=== PATIENT | male | born 1950 | race Caucasian/White ===

== ENCOUNTER 2023-10-12 19:51 | Inpatient (IN) | payer MEDICARE ==
[~2023-10-12] VITALS: Ht 182.9 cm; Wt 79.8 kg
--- NOTE | 2023-10-12 20:10 | NUR ---
Informed Supevisor for needed 1:1 sitter and Security to take an eye of the patient. Patient was changed to hospital gown.
[2023-10-12] MEDS ORDERED: KETOROLAC TROMETHAMINE 15 MG INJ IVP ONE (20:30)
[2023-10-12 20:45] LABS: BASOPHILS # (AUTO) 0.1 K/UL (0.0-0.2); BASOPHILS % (AUTO) 0.7 % (0.0-2.0); EOSINOPHILS # (AUTO) 0.1 K/uL (0.0-0.7); EOSINOPHILS % (AUTO) 1.2 % (0.0-7.0); HEMATOCRIT 45.5 % (36.7-47.1); HEMOGLOBIN 15.3 g/dL (12.5-16.3); LYMPHOCYTES # (AUTO) 3.4 K/uL (0.8-4.8); LYMPHOCYTES % (AUTO) 36.4 % (20.5-51.5); MEAN CORPUSCULAR HEMOGLOBIN 28.8 uug (23.8-33.4); MEAN CORPUSCULAR HGB CONC 34 g/dL (32.5-36.3); MEAN CORPUSCULAR VOLUME 85.7 fL (73.0-96.2); MONOCYTES # (AUTO) 1.1 K/uL (0.1-1.30); MONOCYTES % (AUTO) 11.4 % (0.0-11.0); NEUTROPHILS # (AUTO) 4.7 K/uL (1.8-8.9); NEUTROPHILS % (AUTO) 50.3 % (38.5-71.5); PLATELET COUNT (AUTO) 284 K/uL (152-348); RED BLOOD CELL COUNT(AUTO) 5.31 MIL/uL (4.06-5.63); RED CELL DISTRIBUTION WIDTH 13.7 % (12.1-16.2); WHITE BLOOD COUNT (AUTO) 9.3 K/uL (3.6-10.2)
[2023-10-12 20:50] LABS: DIFFERENTIAL COMMENT 1
[2023-10-12 21:00] LABS: CARBON DIOXIDE 28 mmol/L (21-32); CHLORIDE 105 mmol/L (98-107); CREATININE 1.2 mg/dL (0.6-1.3); GLUCOSE 125 mg/dL (74-106); POTASSIUM 3.3 mmol/L (3.5-5.1); SODIUM SERUM 140 mmol/L (136-145); UREA NITROGEN, BLOOD 30 mg/dL (7-18)
[2023-10-12 21:06] LABS: ALANINE AMINOTRANSFERASE 41 U/L (16-63); ALBUMIN 3.7 g/dL (3.4-5.0); ALKALINE PHOSPHATASE 46 U/L (50-136); ASPARTATE AMINOTRANSFERASE 19 U/L (15-37); BILIRUBIN,TOTAL 0.6 mg/dL (0.2-1.0); TOTAL PROTEIN, SERUM 6.8 g/dL (6.4-8.2)
[2023-10-12 21:47] LABS: ETHANOL < 3 MG/DL (0-10)
[2023-10-12 22:24] LABS: ACETAMINOPHEN < 10.0 ug/mL (10-30)
[2023-10-12 22:41] LABS: *BILIRUBIN,URIN NEGATIVE (NEGATIVE); *BLOOD, URINE NEGATIVE (NEGATIVE); *CLARITY,URINE CLOUDY (CLEAR); *COLOR,URINE YELLOW (YELLOW); *KETONES,URINE 1+ (NEGATIVE); *PROTEIN,URINE TRACE (NEGATIVE); *UROBILINOGEN,URINE 0.2 E.U./dl (NORMAL); LEUKOCYTE ESTERASE ,URINE NEGATIVE (NEGATIVE); NITRITE, URINE NEGATIVE (NEGATIVE)
[2023-10-12 22:46] LABS: UGLUCOSE 3+ (NEGATIVE)
[2023-10-12 22:50] LABS: RBC,URINE 0-3 /HPF (0-3); WBC,URINE NONE SEEN /HPF (0-3)
[2023-10-12 22:51] LABS: BACTERIA,URINE NONE SEEN /HPF (NONE SEEN); SQUAMOUS EPITHELIAL CELL,UR NONE SEEN /HPF (NONE SEEN); URINE AMORPHOUS URATE MANY /HPF
[2023-10-12 22:57] LABS: *AMPHETAMINE, URINE NEGATIVE (NEGATIVE); *BARBITURATE, URINE NEGATIVE (NEGATIVE); *BENZODIAZEPINE, URINE NEGATIVE (NEGATIVE); *CANNABINOID, URINE NEGATIVE (NEGATIVE); *COCCAINE, URINE NEGATIVE (NEGATIVE); *OPIATE, URINE NEGATIVE (NEGATIVE); *PHENCYCLIDINE SCREEN,URINE NEGATIVE (NEGATIVE); FENTANYL, URINE NEGATIVE (NEGATIVE)
--- NOTE | 2023-10-12 23:00 | NUR ---
PT A & O X 4 WITH NOC/O PAIN AND NAD OBSERVED. PT GIVEN A SACK LUNCH, FELICITY WELL.
[2023-10-12] MEDS ORDERED: OMEP20CA15 PO (23:22)
[2023-10-12] MEDS ORDERED: AMLO-212 (23:22)
[2023-10-12] MEDS ORDERED: METF-886 PO (23:22)
[2023-10-12] MEDS ORDERED: MIRT-121 (23:22)
[2023-10-12] MEDS ORDERED: ROSU20TA2 PO (23:22)
[2023-10-12] MEDS ORDERED: VENL75CA62 (23:22)
[2023-10-12] MEDS ORDERED: HYDR12.5 PO (23:22)
[2023-10-12] MEDS ORDERED: DIVA250T (23:22)
[2023-10-12] MEDS ORDERED: BENA20TA9 PO (23:22)
[2023-10-12] MEDS ORDERED: EMPA25TA (23:22)
[2023-10-12] MEDS ORDERED: EZET10TA32 PO (23:22)
[2023-10-12] MEDS ORDERED: LORAZEPAM 1 MG TABLET ONE (23:25)
[2023-10-12] MEDS ORDERED: POTASSIUM CHLORIDE 20 MEQ TAB.PRT.SR ONE (23:26)
[2023-10-12] MEDS: LORAZEPAM 0.5 MG TABLET PO ONE (23:27)
[2023-10-12] MEDS: POTASSIUM CHLORIDE 20 MEQ TAB.PRT.SR PO ONE (23:27)
[2023-10-13] MEDS ORDERED: TEMAZEPAM 7.5 MG CAPSULE PO PRN (07:00)
[2023-10-13] MEDS ORDERED: MAGNESIUM HYDROXIDE 30 ML LIQUID UDC PO PRN (07:00)
[2023-10-13] MEDS ORDERED: MAG HYDROX/AL HYDROX/SIMETH 30 ML LIQUID UDC PO PRN (07:00)
[2023-10-13] MEDS ORDERED: LORAZEPAM 0.5 MG TABLET PO PRN (07:00)
--- NOTE | 2023-10-13 07:30 | NUR ---
Gps/Nursing- Received patient pacing around the hallway , alert oriented x3, claimed feeling tired , and no energy , redirected to his room to rest , patient fell asleep right away , in no sign of any distress, no pain. Will attempt to talk talk to patient when fully rested and awake .
[2023-10-13] MEDS: BLOOD SUGAR DIAGNOSTIC 1 EACH STRIP VI ONE (07:58)
[2023-10-13 08:04] VITALS: BP 153/76; TEMP 98.2; O2SAT 98
[2023-10-13] MEDS ORDERED: PIOG30TA72 PO (09:43)
[2023-10-13] MEDS ORDERED: VENLAFAXINE XR 75 MG TAB.ER.24H PO SCH (10:45)
--- NOTE | 2023-10-13 13:00 | NUR ---
Gps/Nursing - Patient admits to feelings of being depressed , but has no plan to hurt self. Stayed in bed most of the morning napping . . Compliant with routine am. meds . Interacting fairly well with his peers. Patient was able to talked to his Francia. Stayed in the activity room during the afternoon. Per patient he had a prior Hospitalization in a locked facility in [facility] for few days , claimed with the same problem. Encouraged continued verbalizations of his feelings and needs, safety reviewed
[2023-10-13] MEDS: DIVALPROEX 250 MG TABLET.DR PO SCH (13:41)
[2023-10-13 15:38] VITALS: BP 158/95; TEMP 98; O2SAT 100
--- NOTE | 2023-10-13 16:13 | NUR ---
JORGE INITIAL DISCHARGE NOTE: [place] [address] [place] [address] . Pt would like to return home upon discharge. JORGE will work with pt, his , Vivian [phone], and to ensure a safe and proper discharge plan.
[2023-10-13] MEDS ORDERED: Medication Not On Formulary EA (Omeprazole 20 MG) PO PRN (17:30)
[2023-10-13] MEDS: ATORVASTATIN 40 MG TABLET PO SCH (20:16)
[2023-10-13 20:22] VITALS: BP 166/87; TEMP 97.9; O2SAT 98
--- NOTE | 2023-10-13 20:58 | NUR ---
GPS: Resting comfortably in bed at this time. Less anxious tonight so far. Re-assured prn. Still feels depressed but denies wanting to harm self. Meds.as ordered. Safe environment provided. Will continue to re-direct prn.
[2023-10-13] MEDS ORDERED: Medication Not On Formulary EA (Rosuvastatin Calcium (Crestor) 20 MG) PO SCH (21:00)
[2023-10-14 07:59] VITALS: BP 143/66; TEMP 98; O2SAT 99
[2023-10-14] MEDS: BENAZEPRIL HCL 20 MG TABLET PO SCH (08:15)
[2023-10-14] MEDS: EZETIMIBE 10 MG TABLET PO SCH (08:15)
[2023-10-14] MEDS: HYDROCHLOROTHIAZIDE 25 MG TABLET PO SCH (08:16)
[2023-10-14] MEDS: METFORMIN XR 500 MG TAB.SR.24H PO SCH (08:17)
[2023-10-14] MEDS: ACETAMINOPHEN 325 MG TABLET PO PRN (08:56)
[2023-10-14] MEDS: LORAZEPAM 0.5 MG TABLET PO PRN (08:57)
[2023-10-14] MEDS ORDERED: HYDROCHLOROTHIAZIDE 12.5 MG CAPSULE PO SCH (09:00)
[2023-10-14 09:11] LABS: THYROID STIMULATING HORMONE 1.242 mIU/mL (0.358-3.740)
[2023-10-14] MEDS ORDERED: ACETAMINOPHEN 500 MG TABLET PO PRN (09:15)
[2023-10-14] MEDS: PIOGLITAZONE HCL 15 MG TABLET PO SCH (10:10)
--- NOTE | 2023-10-14 13:30 | NUR ---
Gps/Nursing - Observed patient this am, extremely anxious , wants his phone , needed to call someone but does not know the number kept coming inside the Nurses station , needing redirections . Vivian in to visit patient this afternoon , black phone and carpenter assistant, given to as requested by patient,(belonging list singed) Stayed in the activity room during visiting hour.
[2023-10-14 16:11] VITALS: BP 140/75; TEMP 98; O2SAT 99
[2023-10-14 20:00] VITALS: BP 158/87; TEMP 98.1; O2SAT 99
[2023-10-14] MEDS: TEMAZEPAM 7.5 MG CAPSULE PO PRN (21:57)
[2023-10-15 08:14] VITALS: BP 156/80; TEMP 97.5; O2SAT 98
[2023-10-15 16:16] VITALS: BP 158/90; TEMP 97.9; O2SAT 98
--- NOTE | 2023-10-15 16:39 | NUR ---
Gps/Nursing- Vivian in to visit and patient stayed in the patio for few minutes , COREMAKER FLOOR supervising . Patient less anxious, interacting with his roommate.
[2023-10-15 20:00] VITALS: BP 151/90; TEMP 97.8; O2SAT 98
--- NOTE | 2023-10-16 07:04 | NUR ---
Slept well throughout the night. No distress noted. Kept comfortable. Will monitor patient. No behavioral issues noted.
[2023-10-16 08:04] VITALS: BP 150/90; TEMP 97.6; O2SAT 98
--- NOTE | 2023-10-16 11:16 | NUR ---
Gps/Nursing- Complained of being anxious, fidgety , restless, "cant stay still" ativan 0.5 mg 1 tab given with min. results, stayed in the activity room interacting with his peers, also was in the patio with the group , GILL Kline was supervising .
[2023-10-16] MEDS: AMLODIPINE 10 MG TABLET PO SCH (11:45)
[2023-10-16 17:05] VITALS: BP 166/84; TEMP 97.9; O2SAT 98
[2023-10-16 21:03] VITALS: BP 146/87; TEMP 98; O2SAT 96
--- NOTE | 2023-10-17 06:44 | NUR ---
GPS: Pt.slept 6.15 last night. Remains anxious at times. Re-assured prn. Denies wanting to harm self. Interacts with some of his peers. Needs attended. Will continue to monitor.
[2023-10-17 08:07] VITALS: BP 134/82; TEMP 98.2; O2SAT 98
--- NOTE | 2023-10-17 11:05 | NUR ---
JORGE DISCHARGE UPDATE: JORGE spoke with pts , Vivian [phone] who stated pt is welcome back home with her as long as pt is compliant with meds and compliant with treatment.
--- NOTE | 2023-10-17 14:33 | NUR ---
GPS: Nursing Notes: Mood Disturbance: Depression: Patient is awake and responding to his name, poor impulse control, constantly coming to the nursing station and asking the same questioned, forgetful, depressed mood and anxious affect, stated "The doctor made me feel unimportant... Does not want to talk to me.." Redirected and reoriented during shift, gets easily anxious when redirected, unable to formulate a viable plan for self care, needs prompting to participate in therapeutic groups, continue to monitor for safety, continue with treatment plan.
--- NOTE | 2023-10-17 16:02 | NUR ---
Social Work PC Hearing Notification Note: straightedge worker notified patient's , Vivian [phone] of patient's probable cause hearing at 10AM on 10/18/23. Vivian stated she will either attend in person or via telephone. Pt is agreeable for the to attend.
[2023-10-17 16:34] VITALS: BP 147/73; TEMP 98.1; O2SAT 99
[2023-10-17 20:00] VITALS: BP 109/67; TEMP 98; O2SAT 97
[2023-10-17] MEDS: DIVALPROEX 500 MG TABLET.DR PO SCH (20:44)
--- NOTE | 2023-10-18 04:44 | NUR ---
Pt has been overall compliant with med-pass and POC. He can be found interacting with other patient's. He's AOx3/4, and easily redirectable. The one medication this pt requests q shift after his routine meds, is a sleeping med, to which Restoril is given, and is effective. Pt sleeps well on this drug, and is easily awakened. Safe environment in place.
[2023-10-18 08:10] VITALS: BP 137/80; TEMP 98; O2SAT 96
[2023-10-18] MEDS: DIVALPROEX 250 MG TABLET.DR PO SCH (08:18)
--- NOTE | 2023-10-18 09:18 | NUR ---
GPS: Nursing Notes: Reassessment of Ativan: Patient became less anxious and participated in therapeutic groups. Ativan PO PRN was effective, R=20, continue to monitor for safety, continue with treatment plan.
--- NOTE | 2023-10-18 09:30 | NUR ---
Social Work PC Hearing Notification Note: SW reminded patient's , Vivian [phone] of patient's probable cause hearing at 10AM today. Vivian stated she will either attend in person or via telephone. Pt is aware that she can only stay during the duration of the hearing as it will not be visitation hours. Pt is agreeable for the to attend.
--- NOTE | 2023-10-18 10:28 | NUR ---
SW PC HEARING UPDATE: Pts advocate contacted this SW and stated that pts is attending in person and that they will be doing the hearing at 11:15 at her time of arrival.
--- NOTE | 2023-10-18 11:25 | NUR ---
JORGE DISCHARGE UPDATE: JORGE spoke with pts , Vivian [phone] in person who stated pt is welcome back home upon discharge with her as long as pt is compliant with meds and compliant with treatment.
--- NOTE | 2023-10-18 11:45 | NUR ---
PROBABLE CAUSE HEARIND hold upheld for GD , Patient and his Vivian attend the hearing .
--- NOTE | 2023-10-18 13:01 | NUR ---
GPS: Nursing Notes: Mood Disturbance: Depression: Patient is awake and responding to his name, forgetful, depressed mood and anxious affect, episodes of constantly coming to the nursing station and asking the same question, redirected and reoriented during shift, stated "The doctor made feel unimportant because she does not listen to me.." Reassured him that the doctor answered his questions severe times and she is coming every day to see him, needs prompting to participate in therapeutic groups, unable to formulate a viable plan for self care, continue to monitor for safety, continue with treatment plan.
[2023-10-18] MEDS: SERTRALINE HCL 50 MG TABLET PO SCH (13:21)
[2023-10-18 15:33] VITALS: BP 130/68; TEMP 97.8; O2SAT 99
[2023-10-18 20:00] VITALS: BP 124/71; TEMP 97.7; O2SAT 97
[2023-10-19 07:30] VITALS: BP 143/89; TEMP 98; O2SAT 98
--- NOTE | 2023-10-19 10:11 | NUR ---
SW FAMILY CONTACT: SW left a voicemail for pts , Vivian [phone] for a call back to provide pts outpatient therapist/psychiatrist information for this SW to follow-up for discharge follow-up appointments.
--- NOTE | 2023-10-19 10:20 | NUR ---
DISCHARGE UPDATE: [place] at [address] [place] [address] . Pt would like to return home upon discharge. pts , Vivian [phone] will provide discharge to return home upon discharge. Pt will follow-up with his Psychiatrist at [facility] [phone] On November 03 2023 at 1:15PM virtually.
--- NOTE | 2023-10-19 14:33 | NUR ---
SW DISCHARGE UPDATE: [place] [address] [place] [address] . Pt would like to return home upon discharge. Pts , Vivian [phone] confirmed pt is welcome back home and she will provide transportation home upon discharge for the pt. Pt will follow-up with his Psychiatrist, Dr. Brina Morrissey at [facility] [phone] On November 03 2023 at 1:15PM virtually. No set discharge date yet. Pt is agreeable with this plan.
[2023-10-19 15:31] VITALS: BP 123/68; TEMP 97.6; O2SAT 98
--- NOTE | 2023-10-19 18:11 | NUR ---
GPS: A0x3, denied current SI and contracted for safety during shift. Denies current HI, A/VH. Pt presents with low mood, anxiety, perseverating about medication changes and discharge throughout shift. Difficult to redirect with multiple attempts made throughout shift. Pt provided reassurance and validation of feeling but continued to display significant anxiety. PRN medication provided which appears to have been somewhat affective. Pt compliant with care and medications during shift. Will continue to monitor for safety.
[2023-10-19 20:00] VITALS: BP 126/71; TEMP 97.9; O2SAT 96
--- NOTE | 2023-10-19 20:40 | NUR ---
GPS: Pt.resting comfortably in bed at this time. Calm and cooperative and denies SI. No increased anxiety noted so far. Re-assured prn. Discussed with pt. his medication regimen. Pt.will ask psychiatrist tomorrow why his Zoloft was discontinued. Safe environment provided. Will continue to monitor.
[2023-10-20 08:09] VITALS: BP 118/73; TEMP 98; O2SAT 96
[2023-10-20 08:55] LABS: BASOPHILS % (AUTO) 0.5 % (0.0-2.0); EOSINOPHILS # (AUTO) 0.2 K/uL (0.0-0.7); EOSINOPHILS % (AUTO) 3.2 % (0.0-7.0); HEMATOCRIT 47.1 % (36.7-47.1); HEMOGLOBIN 15.9 g/dL (12.5-16.3); LYMPHOCYTES # (AUTO) 2.3 K/uL (0.8-4.8); LYMPHOCYTES % (AUTO) 30.8 % (20.5-51.5); MEAN CORPUSCULAR HEMOGLOBIN 29.1 uug (23.8-33.4); MEAN CORPUSCULAR HGB CONC 34 g/dL (32.5-36.3); MEAN CORPUSCULAR VOLUME 86.2 fL (73.0-96.2); MONOCYTES # (AUTO) 0.8 K/uL (0.1-1.30); MONOCYTES % (AUTO) 10.4 % (0.0-11.0); NEUTROPHILS # (AUTO) 4.1 K/uL (1.8-8.9); NEUTROPHILS % (AUTO) 55.1 % (38.5-71.5); PLATELET COUNT (AUTO) 235 K/uL (152-348); RED BLOOD CELL COUNT(AUTO) 5.47 MIL/uL (4.06-5.63); RED CELL DISTRIBUTION WIDTH 13.8 % (12.1-16.2); WHITE BLOOD COUNT (AUTO) 7.4 K/uL (3.6-10.2)
[2023-10-20 09:06] LABS: ALANINE AMINOTRANSFERASE 42 U/L (16-63); ALBUMIN 3.3 g/dL (3.4-5.0); ALKALINE PHOSPHATASE 45 U/L (50-136); ASPARTATE AMINOTRANSFERASE 16 U/L (15-37); BILIRUBIN,TOTAL 0.8 mg/dL (0.2-1.0); CALCIUM 9.8 mg/dL (8.5-10.1); CARBON DIOXIDE 32 mmol/L (21-32); CHLORIDE 103 mmol/L (98-107); GLUCOSE 114 mg/dL (74-106); POTASSIUM 3.8 mmol/L (3.5-5.1); SODIUM SERUM 140 mmol/L (136-145); TOTAL PROTEIN, SERUM 6.6 g/dL (6.4-8.2); UREA NITROGEN, BLOOD 31 mg/dL (7-18); VALPROIC ACID 66 ug/mL (50-100)
[2023-10-20 09:41] LABS: DIFFERENTIAL COMMENT 1
--- NOTE | 2023-10-20 11:38 | NUR ---
Gps/Nursing- Observed pacing around, c/o feelings anxious, ativan o.5 mg 1 tab po ,wants to stay in bed to relax, will wait for his to visit this pm. Encouraged to stay in the activity room , but preferred to be iin be , might have nap /pt.
--- NOTE | 2023-10-20 13:57 | NUR ---
Gps/Nursing- Valuables from the safe , returned/given back to (Vivian) as requested by patient and
--- NOTE | 2023-10-20 13:59 | NUR ---
Gps/Nursing- Vivian () and patient was able to talked to Dr Molina regarding his medications.
[2023-10-20 15:11] VITALS: BP 138/61; TEMP 98; O2SAT 98
[2023-10-20 20:07] VITALS: BP 147/83; TEMP 98.1; O2SAT 98
[2023-10-21 08:03] VITALS: BP 131/77; TEMP 98.2; O2SAT 99
[2023-10-21 15:00] VITALS: BP 122/66; TEMP 98; O2SAT 98
--- NOTE | 2023-10-21 15:08 | NUR ---
Gps/Nursing- Vivian came in to visit during lunch, patient interacting fairly well, claimed had a nice nap this am. less anxious
[2023-10-21 20:27] VITALS: BP 124/76; TEMP 98.1; O2SAT 98
--- NOTE | 2023-10-22 01:14 | NUR ---
Received patient in the room ,awake and alert. Patient would not admit or deny having feelings of SI ,but did make a verbal contract for safety with this song writer, for the shift. A PRN was requested for sleep . The medication was provided and effective. Safety Stratiges are in place and on going. Continuing to monitor for increase in depression and anxiety. No acute distress noted at this time.
[2023-10-22 08:24] VITALS: BP 118/69; TEMP 98.1; O2SAT 98
[2023-10-22 21:39] VITALS: BP 106/58; TEMP 98; O2SAT 98
--- NOTE | 2023-10-23 03:40 | NUR ---
Patient denied active SI tonight and was willing to engage in a meaningful conversation. This senior technical writer gave the patient a sleeping pill per request and it was effective. Also the patient was given information in writing for SI triggers and coping skills that may be useful when discharged. A verbal contract for safety was made for this shift between the patient and this senior technical writer. Continuing to monitor .
[2023-10-23 08:15] LABS: BASOPHILS # (AUTO) 0.1 K/UL (0.0-0.2); BASOPHILS % (AUTO) 1.8 % (0.0-2.0); EOSINOPHILS # (AUTO) 0.2 K/uL (0.0-0.7); EOSINOPHILS % (AUTO) 2.7 % (0.0-7.0); HEMATOCRIT 45.7 % (36.7-47.1); HEMOGLOBIN 15.2 g/dL (12.5-16.3); LYMPHOCYTES # (AUTO) 2.6 K/uL (0.8-4.8); LYMPHOCYTES % (AUTO) 40.3 % (20.5-51.5); MEAN CORPUSCULAR HEMOGLOBIN 29.2 uug (23.8-33.4); MEAN CORPUSCULAR HGB CONC 33 g/dL (32.5-36.3); MEAN CORPUSCULAR VOLUME 87.7 fL (73.0-96.2); MONOCYTES # (AUTO) 0.8 K/uL (0.1-1.30); MONOCYTES % (AUTO) 12.5 % (0.0-11.0); NEUTROPHILS # (AUTO) 2.7 K/uL (1.8-8.9); NEUTROPHILS % (AUTO) 42.7 % (38.5-71.5); PLATELET COUNT (AUTO) 190 K/uL (152-348); RED BLOOD CELL COUNT(AUTO) 5.21 MIL/uL (4.06-5.63); RED CELL DISTRIBUTION WIDTH 13.7 % (12.1-16.2); WHITE BLOOD COUNT (AUTO) 6.4 K/uL (3.6-10.2)
[2023-10-23 08:20] LABS: DIFFERENTIAL COMMENT 1
[2023-10-23 08:25] LABS: ALANINE AMINOTRANSFERASE 47 U/L (16-63); ALBUMIN 3.1 g/dL (3.4-5.0); ALKALINE PHOSPHATASE 45 U/L (50-136); ASPARTATE AMINOTRANSFERASE 15 U/L (15-37); BILIRUBIN,TOTAL 0.6 mg/dL (0.2-1.0); CALCIUM 9.8 mg/dL (8.5-10.1); CARBON DIOXIDE 34 mmol/L (21-32); CHLORIDE 105 mmol/L (98-107); GLUCOSE 120 mg/dL (74-106); POTASSIUM 3.9 mmol/L (3.5-5.1); SODIUM SERUM 142 mmol/L (136-145); TOTAL PROTEIN, SERUM 6.2 g/dL (6.4-8.2); UREA NITROGEN, BLOOD 29 mg/dL (7-18); VALPROIC ACID 82 ug/mL (50-100)
[2023-10-23 08:47] VITALS: BP 123/69; TEMP 98.1; O2SAT 98
--- NOTE | 2023-10-23 13:25 | NUR ---
Received Patient is awake and responding to his name, forgetful, depressed mood and anxious affect, episodes of constantly coming to the nursing station and asking for telephone , redirected and reoriented during shift.patient with depression mood pacing in hallway ,all needs attended ,will continue close monitoring.
[2023-10-23 16:41] VITALS: BP 118/69; TEMP 98; O2SAT 98
[2023-10-23 20:14] VITALS: BP 120/64; TEMP 98.1; O2SAT 98
[2023-10-24 08:20] VITALS: BP 129/73; TEMP 98.1; O2SAT 98
[2023-10-24 16:35] VITALS: BP 103/65; TEMP 98; O2SAT 98
[2023-10-24 20:27] VITALS: BP 112/51; TEMP 98.1; O2SAT 98
[2023-10-24] MEDS: DIVALPROEX 500 MG TABLET.DR PO SCH (20:52)
--- NOTE | 2023-10-25 06:46 | NUR ---
Overall complaint with care and med-pass. Overall goal-oriented and pleasant. Safe environment provided.
[2023-10-25 08:37] VITALS: BP 118/71; TEMP 98; O2SAT 100
[2023-10-25 15:07] VITALS: BP 120/58; TEMP 98; O2SAT 98
--- NOTE | 2023-10-25 15:18 | NUR ---
spoke with patient's Vivian [phone] for discharge in AM, Vivian will be here at 1100 AM to case picker patient.
--- NOTE | 2023-10-25 15:22 | NUR ---
Discharge prescription called and faxed to [facility] pharmacy @ [phone], (fax).
[2023-10-25 20:14] VITALS: BP 107/59; TEMP 98.1; O2SAT 99
--- NOTE | 2023-10-26 06:56 | NUR ---
End of the shift, patient slept for 7 and 1/2 hours. No behavioral issues, will continue to monitor.
[2023-10-26 07:47] VITALS: BP 105/72; TEMP 98; O2SAT 98
--- NOTE | 2023-10-26 08:00 | NUR ---
PT STILL IN HIS ROOM IN BED AWAKE IN THE BEGINNING OF THE SHIFT. WILL CONTINUE TO MONITOR.
[2023-10-26 08:44] VITALS: BP 105/72
--- NOTE | 2023-10-26 09:23 | NUR ---
RV MECHANIC DISCHARGE NOTE: Pt will discharge home with his , Vivian, pt currently resides at [address] [place] [address] PH: [phone]. Pt's , Vivian ([phone]) confirmed she will be picking up the pt at 11AM on 10/26/23. Pt will follow-up with his Psychiatrist, Dr. Brina Morrissey at [facility] ([phone]) On November 03 2023 at 1:15PM virtually.
--- NOTE | 2023-10-26 11:35 | NUR ---
PATIENT LEFT ACCOMPANIED BY HIS . THEY PICKED UP ALL PATIENT'S BELONGINGS BROUGHT TO THE FACILITY. PT RECEIVED DISCHARGE PAPERWORK AND INSTRUCTIONS REGARDING FOLLOW UP AND NEW RX PARTS PERSON. PT AND VERBALIZED UNDERSTANDING.
== END 2023-10-26 11:45 | disposition home or self-care (01) | DRG 885 ==
LOC: ER 19:53 → GPS 22:45
PROVIDERS: ADMIT Psychiatry & Neurology Psychosomatic Medicine; ATTEND Internal Medicine
DX: F31.9 Bipolar disorder, unspecified (principal); R45.851 Suicidal ideations; E11.9 Type 2 diabetes mellitus without complications; E78.5 Hyperlipidemia, unspecified; I10 Essential (primary) hypertension; Z79.899 Other long term (current) drug therapy; Z81.8 Family history of other mental and behavioral disorders; Z87.820 Personal history of traumatic brain injury; R41.9 Unspecified symptoms and signs involving cognitive functions and awareness; Z88.6 Allergy status to analgesic agent; Z79.84 Long term (current) use of oral hypoglycemic drugs; F41.9 Anxiety disorder, unspecified
CPT/HCPCS: 36415; 70450; 80164; 83605; 83921; 84443; 85025; G0480; J3490